=== PATIENT | male | born 1950 | race Asian ===

== ENCOUNTER 2020-02-15 02:46 | Inpatient (IN) | payer OTHER, MEDICAID ==
[~2020-02-15] VITALS: Ht 167.6 cm; Wt 136.1 kg
[2020-02-15 02:55] VITALS: BP 90/51
--- NOTE | 2020-02-15 03:32 | NUR ---
69 Y/O MALE BIB [facility] WITH STOMACH PAIN S/P LAST EVENINGS DINNER. 10/10 ABDOMINAL PAIN. PT STATES HE ONLY ATE SOUP FOR DINNER. C/O NAUSEA, VOMITING X 30 MIN AGO, ABDOMEN TTP. DENIES DIARRHEA, SOB, COUGH. R/R EQUAL, AND UNLABORED. VSS. SIDE RAIL X2, BED IN LOW POSITION WILL CONTINUE TO MONITOR. 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
--- NOTE | 2020-02-15 04:23 | NUR ---
PT , DOM, CONTACT INFO:
[2020-02-15] MEDS ORDERED: NACL 0.9% 1,000 ML IV ONE (05:30)
--- NOTE | 2020-02-15 05:52 | NUR ---
PT APPEARS TO BE SLEEPING. R/R EQUAL, AND UNLABORED. VSS SIDE RAIL X2, BED IN LOW POSITION. WILL CONTINUE TO MONITOR
[2020-02-15 06:04] LABS: BASOPHILS # (AUTO) 0.1 K/uL (0.00-0.22); BASOPHILS % (AUTO) 1.9 % (0.0-2.0); EOSINOPHILS % (AUTO) 0.4 % (0.0-4.0); HEMATOCRIT 40.1 % (36-52); HEMOGLOBIN 12.9 g/dL (12.0-18.0); LYMPHOCYTES # (AUTO) 0.4 K/uL (2.0-11.5); LYMPHOCYTES % (AUTO) 7.6 % (20.5-51.1); MEAN CORPUSCULAR HEMOGLOBIN 32 pg (27-31); MEAN CORPUSCULAR HGB CONC 32 g/dL (33-37); MEAN CORPUSCULAR VOLUME 100.2 fL (80-94); MONOCYTES # (AUTO) 0.4 K/uL (0.8-1.0); MONOCYTES % (AUTO) 8.7 % (1.7-9.3); NEUTROPHILS # (AUTO) 3.9 K/uL (1.8-7.7); NEUTROPHILS % (AUTO) 81.4 % (42.2-75.2); PLATELET COUNT (AUTO) 160 K/uL (140-450); RED CELL DISTRIBUTION WIDTH 17.1 % (11.6-13.7); WHITE BLOOD COUNT (AUTO) 4.8 K/uL (4.8-10.8)
[2020-02-15 06:17] LABS: ALBUMIN 3.4 g/dL (3.4-5.0); ANION GAP 17.8 (8-16); CARBON DIOXIDE 23.9 mmol/L (21-32); CREATININE 3.3 mg/dL (0.6-1.3); POTASSIUM 4.7 mmol/L (3.5-5.1); TOTAL BILIRUBIN 1.1 mg/dL (0.0-1.0)
[2020-02-15] MEDS ORDERED: ZOLPIDEM 5 MG TAB PO PRN (07:10)
[2020-02-15] MEDS ORDERED: ACETAMINOPHEN 325 MG TAB PO PRN (07:10)
[2020-02-15] MEDS ORDERED: ONDANSETRON 4 MG/2 ML VIAL IM/IVP PRN (07:10)
[2020-02-15] MEDS ORDERED: LORazepam 2 MG/ML VIAL IM/IVP PRN (07:10)
[2020-02-15] MEDS ORDERED: DOCUSATE SODIUM 100 MG GELCAP PO PRN (07:10)
[2020-02-15] MEDS ORDERED: MORPHINE SULFATE 2 MG/ML SYR IVP PRN (07:10)
--- NOTE | 2020-02-15 08:31 | NUR ---
c/o epigastric region pain with nausea x yesterday---denies fever or dysuria will request for pain med
--- NOTE | 2020-02-15 08:47 | NUR ---
encouraged to provide urine sample ; urinal provided
--- NOTE | 2020-02-15 10:38 | NUR ---
daughter (Cherie) [phone] cell please update
[2020-02-15 10:51] LABS: PROTHROMBIN TIME 9.9 secs (10.8-13.4)
[2020-02-15 10:55] LABS: FREE T4 (FREE THYROXINE) 0.96 ng/dL (0.76-1.46); MAGNESIUM 1.9 mg/dL (1.8-2.4); PHOSPHORUS 4.1 mg/dL (2.5-4.9); THYROID STIMULATING HORMONE 1.57 uIU/mL (0.34-3.74)
[2020-02-15 11:30] LABS: APPEARANCE,URINE HAZY (CLEAR); BILIRUBIN,URINE NEGATIVE (NEGATIVE); BLOOD, URINE 1+ (NEGATIVE); COLOR,URINE DARK YELLOW (YELLOW); LEUKOCYTE ESTERASE ,URINE NEGATIVE (NEGATIVE); NITRITE, URINE NEGATIVE (NEGATIVE); UGLUCOSE 3+ (NEGATIVE)
[2020-02-15] MEDS: NACL 0.9% 1,000 ML IV SCH ×2 (11:39→18:19)
[2020-02-15 11:41] LABS: BARBITURATE, URINE NEGATIVE ng/ml (NEG <=200); BENZODIAZEPINE, URINE NEGATIVE ng/mL (NEG <=200); CANNABINOID, URINE NEGATIVE ng/mL (NEG <=50); COCAINE, URINE NEGATIVE ng/mL (NEG <=300); OPIATE, URINE NEGATIVE ng/mL (NEG <=2000); PHENCYCLIDINE SCREEN,URINE NEGATIVE ng/mL (NEG <=25)
--- NOTE | 2020-02-15 11:41 | NUR ---
pt is unable to tell me what meds hisw on---nohelia will bring in list
[2020-02-15] MEDS ORDERED: DEXTROSE 50% 50 ML SYR IVP PRN (11:50)
[2020-02-15 11:58] LABS: RBC,URINE 0-5 /HPF (0-5)
[2020-02-15] MEDS: metroNIDAZOLE 500 MG/NS PREMIX 100 ML IV SCH ×2 (12:44→22:01)
[2020-02-15] MEDS ORDERED: BUPR-160 PO (12:57)
[2020-02-15] MEDS ORDERED: CILO100T PO (12:57)
[2020-02-15] MEDS ORDERED: LOSA50TA66 PO (12:57)
[2020-02-15] MEDS ORDERED: LENA5CAP PO (12:57)
[2020-02-15] MEDS ORDERED: CHOL500014 PO (12:57)
[2020-02-15] MEDS ORDERED: ROSU10TA1 PO (12:57)
[2020-02-15] MEDS ORDERED: HUM SUBQ (12:57)
[2020-02-15] MEDS ORDERED: FAMO-90 PO (12:57)
[2020-02-15] MEDS ORDERED: ASPI-1822 PO (12:57)
[2020-02-15] MEDS ORDERED: ALLO100T21 PO (12:57)
[2020-02-15] MEDS ORDERED: INSU100S22 SUBQ (12:57)
[2020-02-15] MEDS ORDERED: PRAZ1CAP5 PO (12:57)
--- NOTE | 2020-02-15 15:31 | NUR ---
as per pharmacy request--pt's family will bring in pt's chemo medication to take as directed--- no repeat episode of emesis---pt states pt is okay right now---aware is NPO
--- NOTE | 2020-02-15 16:18 | NUR ---
helped pt change wet diaper---changed all linen and gown--pt thankful c/o epigastric pain , 12/11 denies n/v continues to wait for available room for inpatient admission
[2020-02-15] MEDS ORDERED: DOCUSATE SODIUM 100 MG GELCAP PO ONE (16:23)
[2020-02-15] MEDS ORDERED: HYDROcodone/APAP 5/325 MG 1 TAB TAB ONE (16:23)
[2020-02-15] MEDS: HYDROcodone/APAP 5/325 MG 1 TAB TAB PO PRN ×2 (16:28→22:45)
--- NOTE | 2020-02-15 16:29 | NUR ---
medicated as written for pain control---will continue to observe for pain control
[2020-02-15] MEDS: BLOOD GLUCOSE MONITORING 1 DEV DEV FS SCH ×2 (16:30→21:00)
--- NOTE | 2020-02-15 17:45 | NUR ---
PATIENT ADMITTED TO TELE FLOOR FROM ED VIA GURNEY. STANDARD PRECAUTION OBSERVED. PATIENT AWAKE AND ALERT ORIENTED X4. RESP EVEN AND UNLABORED ON ROOM AIR. PATIENT STATED TOLERABLE PAIN TO ABDOMEN. ABDOMEN NOTED TO BE ROUND AND LARGE, DISTENDED, FIRM TO TOUCH. BOWEL SOUNDS HYPOACTIVE. PATIENT STATED LAST BOWEL MOVEMENT WAS 4 DAYS AGO. PATIENT DENIES OF ANY NAUSEA AND VOMITING AT THIS TIME. RIGHT AC 22 NOTED SL AND PATENT. LEFT SIDE WEAKNESS NOTED UPON INITIAL ASSESSMENT. SKIN IS INTACT. NPO FOR POSSIBLE SURGERY. MRSA SPECIMEN OBTAINED. PLAN OF CARE DISCUSSED WITH PATIENT. PATIENT VERBALIZED UNDERSTANDING. CALL LIGHT WITHIN REACH. WILL CONTINUE TO MONITOR.
--- NOTE | 2020-02-15 17:45 | NUR ---
Pt transferred to Tele via WHEELCHAIR ROOM 120-B REPORT GIVEN TO ALVARO MARCUM
--- NOTE | 2020-02-15 19:30 | NUR ---
PATIENT RESTING COMFORTABLY IN BED. ENDORSED TO NIGHT NURSE. PATIENT IN STABLE CONDITION.
[2020-02-15 20:00] VITALS: BP 109/57
--- NOTE | 2020-02-15 20:00 | NUR ---
RECEIVED REPORT FROM DAY RN FOR CONTINUITY OF CARE.RECEIVED PATIENT A/A/OX3, LAYING IN BED. DR OLIVERA CAME AND SEEN THE PT. NO C/O PAIN AT THIS TIME. NO S/SX OF DISTRESS NOTED. SHOWING SINUS RHYTHM ON ASSOCIATE AGENT INSURANCE SALES, HR-71. VSS, AFEBRILE, SATING 98% ON RA. ADMITTED PT FROM ER. ADMISSION HISTORY OBTAIN FROM THE CHART AND PT INPUT.FALL PRECAUTION IMPLEMENTED. INSTRUCTED TO CALL FOR ASSISTANCE AT ALL TIMES.CALL LIGHT WITHIN REACH. WILL CONTINUE POC AND MONITORING.
[2020-02-15] MEDS ORDERED: metroNIDAZOLE 500 MG/NS PREMIX 100 ML IV ONE (20:35)
[2020-02-15] MEDS ORDERED: ASPIRIN 81 MG TAB.CHEW PO SCH (21:00)
[2020-02-15] MEDS: INSULIN LANTUS 100 UNITS/ML 10 ML VIAL SUBQ SCH (21:00)
[2020-02-15] MEDS: PRAZOSIN 1 MG CAP PO SCH (21:00)
[2020-02-15] MEDS: allopurinoL 100 MG TAB PO SCH (22:00)
[2020-02-15] MEDS: FAMOTIDINE 20 MG TAB PO SCH (22:00)
[2020-02-15] MEDS: cilostazoL 100 MG TAB PO SCH (22:00)
--- NOTE | 2020-02-15 22:00 | NUR ---
ADMINISTERED ALL SCHEDULED MEDICATIONS. BLOOD SUGAR 189, GAVE SSI COVERAGE AND LANTUS ORDERED. SAFETY MEASURES IN PLACED.
[2020-02-15] MEDS: INSULIN LISPRO SLIDING SCALE 100 UNITS/ML VIAL SUBQ PRN (22:05)
[2020-02-16] VITALS: BP 117/62
--- NOTE | 2020-02-16 | NUR ---
VITAL SIGNS STABLE,AFEBRILE, SATING 100% ON RA. SR WITH BBB ON I O PSYCHOLOGIST, HR-81. SAFETY MEASURES IN PLACED.
[2020-02-16] MEDS: NACL 0.9% 1,000 ML IV SCH (00:58)
--- NOTE | 2020-02-16 02:15 | NUR ---
PT SLEEPING AT THIS TIME. VISIBLE CHEST RISE AND FALL NOTED.CALL LIGHT WITHIN REACH. WILL CONTINUE MONITORING.
[2020-02-16 04:00] VITALS: BP 116/65
--- NOTE | 2020-02-16 04:00 | NUR ---
PT AWAKE AND SITTING AT THE EDGE OF THE BED. VOMITED X1 ON THE FLOOR PER RECTANGULAR TANK COOPER MONICA. UNABLE TO SEE THE PT VOMITUS BECAUSE IT WAS CLEANED BY THE RECTANGULAR TANK COOPER. OTHERWISE VSS, AFEBRILE, SATING 100% ON RA. SR ON CHAIRMAN,HR-80. CALL LIGHT WITHIN REACH.
[2020-02-16] MEDS: metroNIDAZOLE 500 MG/NS PREMIX 100 ML IV SCH ×3 (04:59→20:49)
--- NOTE | 2020-02-16 05:15 | NUR ---
PT IV PUMP SHUT DOWN AND IT SAYING POWER IS NOT SUFFICIENT. PUMP WAS PLUG THE WHOLE TIME. TRIED TO PLUG IT TO ANOTHER OUTLET BUT STILL NOT WORKING. WENT TO LOOK FOR PUMP EVERYWHERE BUT NON AVAILABLE. I ASKED THE SURGICAL TECHNOLOGIST FAIRY WHERE TO GET EXTRA IV PUMP PER SURGICAL TECHNOLOGIST FAIRY IF THERE IS NOTHING ON THE FLOOR, SHE CAN'T PROVIDE ME A PUMP. TRIED TO FIND A DIAL A FLOW BUT NON AVAILABLE WELL.WILL TRY LOOKING FOR PUMP AGAIN.
[2020-02-16 06:26] LABS: HEMATOCRIT 41.4 % (36-52); HEMOGLOBIN 13.6 g/dL (12.0-18.0); MEAN CORPUSCULAR HEMOGLOBIN 33 pg (27-31); MEAN CORPUSCULAR HGB CONC 33 g/dL (33-37); MEAN CORPUSCULAR VOLUME 99.7 fL (80-94); PLATELET COUNT (AUTO) 184 K/uL (140-450); RED BLOOD CELL COUNT(AUTO) 4.15 MIL/uL (4.20-6.10); RED CELL DISTRIBUTION WIDTH 17.2 % (11.6-13.7); WHITE BLOOD COUNT (AUTO) 2.7 K/uL (4.8-10.8)
--- NOTE | 2020-02-16 06:30 | NUR ---
PT STABLE. NO ACUTE EVENTS THROUGHOUT THE NIGHT. NO S/SX OF DISTRESS NOTED. NO COMPLAIN AT THIS TIME. ALL NEEDS ATTENDED. CALL LIGHT WITHIN REACH. WILL ENDORSE THE PT TO THE ONCOMING RN FOR CONTINUITY OF CARE.
[2020-02-16 06:45] LABS: CARBON DIOXIDE 25.3 mmol/L (21-32); CREATININE 3.1 mg/dL (0.6-1.3); POTASSIUM 4.3 mmol/L (3.5-5.1)
[2020-02-16 06:52] LABS: MAGNESIUM 2.1 mg/dL (1.8-2.4)
--- NOTE | 2020-02-16 07:15 | NUR ---
REPORT GIVEN TO THE RECEIVING RN AND ENDORSED THAT THERE IS NO AVAILABLE IV PUMP AND IV ANTIBIOTIC FLAGYL NEEDED TO BE GIVEN.
[2020-02-16 08:00] VITALS: BP 101/50
[2020-02-16] MEDS: BLOOD GLUCOSE MONITORING 1 DEV DEV FS SCH ×4 (08:11→20:50)
[2020-02-16] MEDS: DEXT 5% /NACL 0.9% 1,000 ML IV SCH ×3 (08:57→23:24)
--- NOTE | 2020-02-16 08:57 | NUR ---
MEDICATIONS EXPLAINED AND GIVEN TO PATIENT, BLOOD PRESSURE MEDICATIONS WITHHELD PATIENT BLOOD PRESSURE IS 101/50. DR DIAZ AWARE OF BLOOD PRESSURE MEDICATION WITHHELD. NEW BAG OF D5 NS HUNG AT 150 ML/HR. ALL NEEDS MET, CALL LIGHT WITHIN REACH, WILL CONTINUE TO MONITOR.
[2020-02-16] MEDS: buPROPion 150 MG TABER PO SCH (08:58)
[2020-02-16] MEDS: FAMOTIDINE 20 MG TAB PO SCH ×2 (08:58→20:55)
[2020-02-16] MEDS: cilostazoL 100 MG TAB PO SCH ×2 (08:58→20:55)
[2020-02-16] MEDS: allopurinoL 100 MG TAB PO SCH ×2 (08:58→20:54)
[2020-02-16] MEDS ORDERED: LOSARTAN 50 MG TAB PO SCH (09:00)
[2020-02-16] MEDS: PRAZOSIN 1 MG CAP PO SCH ×2 (09:00→20:55)
[2020-02-16] MEDS ORDERED: LENALIDOMIDE PO SCH (09:00)
[2020-02-16] MEDS: INSULIN LISPRO SLIDING SCALE 100 UNITS/ML VIAL SUBQ PRN ×3 (09:02→21:01)
--- NOTE | 2020-02-16 10:00 | NUR ---
APRON MAN NOTE: Patient's Orientation Person Situation Place Time Information Provided By JOAQUIN TAO - CHILD Oil And Gas Exploration Technician, Realtionship and Phone Number JOAQUIN TAO DAUGHTER [phone] Healthcare Power of Rn Allergy No Does Patient Have a POLST Yes Identifying Problems No Social Work Triggers Is A Social Work Consult Needed No Mandate Report Filed No Explanation Of Identifying Problems PATIENT IS A 69-YEAR-OLD MALE ADMITTED FOR SMALL BOWEL OBSTRUCTION. PATIENT HAS PMHX OF ESRD NOT ON HD, DM, HTN, GOUT, MDD, CLAUDICATION, GERD, DLD, AND MULTIPLE MYELOMA. Admitted From Home Pre-Admission Level Of Functioning Status Independent With DME Prior Resources/Services Used In Last 12 Months No Prior Resources Used Prior DME Hospital Bed Walker Wheelchair Living Situation Apartment Lives W/Significant Other Patient Had Caregiver No Home Support No Caregiver Issues Financial Issues No Known Financial Issue Referral To The Financial Counselor Needed No Factors/Needs No D/C Needs Identified Pt/Rep Participated In Discharge Plan Yes Patient/Family Agress With Discharge Plan Yes Discharge Plan Comments TENTATIVE DISCHARGE PLAN IS FOR PATIENT TO RETURN HOME. DC Plan Status Initiated
[2020-02-16 10:39] LABS: LYMPHOCYTES % (MANUAL) 32 % (20-46)
[2020-02-16 10:40] LABS: BASOPHILS % (MANUAL) 0 % (0-2); EOSINOPHILS % (MANUAL) 1 % (0-4); MONOCYTES % (MANUAL) 10 % (5-12)
--- NOTE | 2020-02-16 10:47 | NUR ---
PATIENT HAS BEEN SCREENED AND CATEGORIZED MODERATE NUTRITION RISK. PATIENT WILL BE SEEN WITHIN 3-5 DAYS OF ADMISSION. 02/18/20 02/20/[address]
--- NOTE | 2020-02-16 10:50 | NUR ---
PATIENT TAKEN TO RADIOLOGY VIA WHEELCHAIR, TICKET TO RIDE / HANDOFF GIVEN. PATIENT IS OFF IVF PER SOILED LINEN DISTRIBUTOR REQUEST. CAR STEREO INSTALLER NOTIFIED
[2020-02-16 12:00] VITALS: BP 112/70
--- NOTE | 2020-02-16 12:08 | NUR ---
PATIENT RETURNED FROM RADIOLOGY , RECONNECTED TO IV FLUIDS NOW AT 125 ML/HR D5NS. DR. CHRISTIAN ASSESSED PATIENT, STATES THAT PATIENT MUST CONTINUE TO BE NPO. MADE AWARE REGARDING PATIENT CHEMOTHERAPY MEDICATION AND STATES HE WILL PUT IN ORDER FOR OKAY TO USE HOME MEDICATIONS. ALL NEEDS MET, CALL LIGHT WITHIN REACH, WILL CONTINUE TO MONITOR.
[2020-02-16] MEDS: AMPICILLIN/SULBACTAM 3 GM in NACL 0.9% 100 ML IV SCH ×2 (13:40→20:54)
--- NOTE | 2020-02-16 14:03 | NUR ---
Talked to cherie, regarding the cancer medication which is brought yesterday, per Cherie the mother gave it to the front lobby to give to miguel, spoke to jennifer pharmacist, will look for the medicine.
[2020-02-16] MEDS ORDERED: REVLIMID 5 MG PO SCH (15:08)
[2020-02-16 16:00] VITALS: BP 111/63
--- NOTE | 2020-02-16 16:04 | NUR ---
PATIENT HAD THIRD LOOSE BOWEL MOVEMENT, LOOSE, BROWN, CLEANED CHANGED AND REPOSITIONED. WILL NOTIFY .
--- NOTE | 2020-02-16 16:11 | NUR ---
PATIENT BLOOD GLUCOSE 142, NO INSULIN COVERAGE NEEDED AT THIS TIME.
--- NOTE | 2020-02-16 16:32 | NUR ---
DR CHRISTIAN AWARE OF PATIENT THIRD LARGE SOFT BOWEL MOVEMENT TODAY. STATES THAT THIS MEANS THAT THE PATIENT MAY NOT NEED SURGERY. GAVE NO NEW ORDERS AT THIS TIME, MD STATES LONG PATIENT IS STILL HAVING PAIN, PATIENT MUST BE KEPT NPO. WILL CONTINUE TO MONITOR.
[2020-02-16] MEDS: SIMVASTATIN 20 MG TAB PO SCH (17:30)
--- NOTE | 2020-02-16 19:04 | NUR ---
PATIENT CLEANED CHANGED AND REPOSITIONED, HAD ANOTHER LARGE SOFT WATERY BOWEL MOVEMENT, FOURTH ONE TODAY. WILL ENDORSE TO FOAM GUN OPERATOR NURSE TO CONTINUE MONITORING. ALL NEEDS MET, CALL LIGHT WITHIN REACH.
--- NOTE | 2020-02-16 19:30 | NUR ---
ENDORSED TO LOOM STOP CHECKER NURSE ABOUT PATIENT CONDITION AND PLAN OF CARE. MADE AWARE OF PATIENTS 4 BOWEL MOVEMENTS TODAY. PATIENT CURRENTLY STABILIZED IN NO S/S RESPIRATORY DISTRESS NO C/O OF PAIN AT THIS TIME. ALL NEEDS MET, CALL LIGHT WITHIN REACH.
--- NOTE | 2020-02-16 19:51 | NUR ---
RECEIVED REPORT EARLIER FROM DAY RN FOR CONTINUITY OF CARE. PT A/A/OX3. NO C/O PAIN AT THIS TIME. NO S/SX OF DISTRESS NOTED. SHOWING SINUS TACHYCARDIA ON HABILITATION WORKER, HR- 104. IVF INFUSING ORDERED. FALL PRECAUTION IMPLEMENTED. INSTRUCTED TO CALL FOR ASSISTANCE AT ALL TIMES.CALL LIGHT WITHIN REACH. WILL CONTINUE POC AND MONITORING.
[2020-02-16 20:00] VITALS: BP 114/73
[2020-02-16] MEDS: INSULIN LANTUS 100 UNITS/ML 10 ML VIAL SUBQ SCH (21:00)
--- NOTE | 2020-02-16 22:00 | NUR ---
ADMINISTERED ALL THE SCHEDULED MEDS EARLIER. BLOOD SUGAR WAS 162, GAVE 2UNITS HUMALOG PER SSI AND LANTUS 22UNITS ORDERED. WILL CONTINUE MONITORING AND POC.
[2020-02-17] VITALS: BP 112/52
--- NOTE | 2020-02-17 | NUR ---
PATIENT VSS, AFEBRILE, SATING 98% ON RA. SINUS RHYTHM ON CHIPPER OPERATOR, HR-97. CALL LIGHT WITHIN REACH.
--- NOTE | 2020-02-17 00:45 | NUR ---
PATIENT IV ON THE RT AC NOT PATENT. DC/D IV ON THE RT AC, CANNULA INTACT. NO BLEEDING OR HEMATOMA NOTED ON THE SITE. STARTED A NEW IV ON THE RT HAND GAUGE 22.
--- NOTE | 2020-02-17 02:33 | NUR ---
PATIENT SLEEPING AT THIS TIME. VISIBLE CHEST RISE AND FALL NOTED. NOT IN ANY DISTRESS. WILL CONTINUE POC.
[2020-02-17 04:00] VITALS: BP 101/62
--- NOTE | 2020-02-17 04:30 | NUR ---
PT ASLEEP AND NO COMPLAIN OF PAIN AT THIS TIME. VSS, AFEBRILE, SATING 100% ON RA. SR WITH ST DEPRESSION ON TELE MONITOR, HR-92. CALL LIGHT WITHIN REACH.
[2020-02-17] MEDS: metroNIDAZOLE 500 MG/NS PREMIX 100 ML IV SCH ×3 (05:08→20:11)
[2020-02-17] MEDS: AMPICILLIN/SULBACTAM 3 GM in NACL 0.9% 100 ML IV SCH ×3 (05:13→21:48)
[2020-02-17] MEDS: DEXT 5% /NACL 0.9% 1,000 ML IV SCH (05:53)
[2020-02-17] MEDS: INSULIN LISPRO SLIDING SCALE 100 UNITS/ML VIAL SUBQ PRN ×4 (06:26→20:07)
[2020-02-17] MEDS: BLOOD GLUCOSE MONITORING 1 DEV DEV FS SCH ×4 (06:27→20:06)
--- NOTE | 2020-02-17 07:30 | NUR ---
RECEIVED BEDSIDE REPORT FROM PERCHER NURSE FOR CONTINUITY OF CARE. PATIENT IS ASLEEP AND IN BED. NO C/O PAIN AT THIS TIME. NO S/SX OF DISTRESS NOTED. RESPIRATIONS EVEN AND UNLABORED, ON ROOM AIR WITH SAO2 AT 94%. IVF INFUSING ON RIGHT HAND 22G ORDERED. FALL PRECAUTION IMPLEMENTED. INSTRUCTED TO CALL FOR ASSISTANCE AT ALL TIMES.CALL LIGHT WITHIN REACH. POC DISCUSSED. WILL CONTINUE TO MONITOR.
[2020-02-17 07:50] LABS: PHOSPHORUS 2.9 mg/dL (2.5-4.9)
[2020-02-17 08:00] VITALS: BP 114/49
[2020-02-17 08:00] LABS: BASOPHILS % (AUTO) 0.7 % (0.0-2.0); EOSINOPHILS % (AUTO) 1.1 % (0.0-4.0); HEMATOCRIT 36.5 % (36-52); HEMOGLOBIN 11.8 g/dL (12.0-18.0); LYMPHOCYTES # (AUTO) 0.6 K/uL (2.0-11.5); LYMPHOCYTES % (AUTO) 19.4 % (20.5-51.1); MEAN CORPUSCULAR HEMOGLOBIN 33 pg (27-31); MEAN CORPUSCULAR HGB CONC 32 g/dL (33-37); MEAN CORPUSCULAR VOLUME 100.6 fL (80-94); MONOCYTES # (AUTO) 0.4 K/uL (0.8-1.0); MONOCYTES % (AUTO) 15.6 % (1.7-9.3); NEUTROPHILS # (AUTO) 1.8 K/uL (1.8-7.7); NEUTROPHILS % (AUTO) 63.2 % (42.2-75.2); PLATELET COUNT (AUTO) 162 K/uL (140-450); RED BLOOD CELL COUNT(AUTO) 3.63 MIL/uL (4.20-6.10); RED CELL DISTRIBUTION WIDTH 16.6 % (11.6-13.7); WHITE BLOOD COUNT (AUTO) 2.8 K/uL (4.8-10.8)
[2020-02-17 08:08] LABS: ANION GAP 18.9 (8-16); CARBON DIOXIDE 20.4 mmol/L (21-32); CREATININE 3.3 mg/dL (0.6-1.3); POTASSIUM 4.3 mmol/L (3.5-5.1)
[2020-02-17] MEDS: allopurinoL 100 MG TAB PO SCH ×2 (09:11→20:13)
[2020-02-17] MEDS: cilostazoL 100 MG TAB PO SCH ×2 (09:12→20:14)
[2020-02-17] MEDS: FAMOTIDINE 20 MG TAB PO SCH ×2 (09:12→20:13)
[2020-02-17] MEDS: buPROPion 150 MG TABER PO SCH (09:12)
[2020-02-17] MEDS: PRAZOSIN 1 MG CAP PO SCH ×2 (09:13→20:42)
--- NOTE | 2020-02-17 09:13 | NUR ---
MORNING MEDICATIONS GIVEN. NO SIGNS OF DISTRESS NOTED. V/S TAKEN AND IS WNL. WILL CONTINUE TO MONITOR.
[2020-02-17] MEDS: REVLIMID 5 MG PO SCH (09:14)
--- NOTE | 2020-02-17 11:00 | NUR ---
DR. OLIVERA BY THE BEDSIDE, REVIEWED KUB RESULT AND PROCEEDED DIET CHANGE TO CLEAR LIQUIDS. WILL FOLLOW THROUGH. WILL CONTINUE TO MONITOR.
[2020-02-17] MEDS: DEXT 5% / NACL 0.45% 1,000 ML IV SCH ×2 (11:20→19:20)
--- NOTE | 2020-02-17 11:21 | NUR ---
NOTIFIED DR. OLIVERA REGARDING KUB RESULT AND HE ORDERED CLEAR LIQUID DIET.
[2020-02-17 12:00] VITALS: BP 92/54
--- NOTE | 2020-02-17 12:30 | NUR ---
2 UNITS OF INSULIN GIVEN FOR BLOOD GLUCOSE OF 190. NO SIGNS OF DISTRESS NOTED. WILL CONTINUE TO MONITOR.
--- NOTE | 2020-02-17 13:45 | NUR ---
DISCHARGE PLANNING: THIS IS A 69 Y/O MALE PATIENT FROM HOME, WHO CAME IN DUE TO ABDOMINAL PAIN. PAST MEDICAL HISTORY INCLUDE ESRD NOT ON HD, DM, HTN, GOUT, GERD, MULTIPLE MYELOMA. INITIAL DIAGNOSIS OF POSSIBLE SMALL BOWEL OBSTRUCTION. CURRENT LABS INCLUDE WB C2.8, H/H 11.8/36.5, NA/K 144/4.3, BUN/CREA 47/3.3. URINE CS AND MRSA NARES PENDING. BLOOD CS SHOWED NO GROWTH AFTER [address] ON ADMISSION SHOWED PARTIAL SMALL BOWEL OBSTRUCTION, RIGHT LATERAL POSTERIOR ABDOMINAL WALL HERNIA CONTAINING PROXIMAL ASCENDING COLON. KUB SHOWED NO EVIDENCE OF COMPLETE SMALL BOWEL OBSTRUCTION, THE SMALL BOWEL LOOPS REMAIN DILATED AND THIS MAY REPRESENT PARALYTIC ILEUS VS PARTIAL OBSTRUCTION. SURGERY CONSULTED AND SEEN - PREFER NON OPERATIVE MANAGEMENT DUE TO MULTIPLE MEDICAL ISSUES AND MORBID OBESITY, PREFER TO ADDRESS RIGHT LATERAL POSTERIOR HERNIA ELECTIVE OUTPATIENT. DC PLAN BACK TO HOME ONCE STABLE.
--- NOTE | 2020-02-17 14:28 | NUR ---
AFTERNOON MEDICATIONS GIVEN. NO SIGNS OF DISTRESS NOTED. WILL CONTINUE TO MONITOR.
[2020-02-17 16:00] VITALS: BP 124/68
[2020-02-17] MEDS: SIMVASTATIN 20 MG TAB PO SCH (16:35)
--- NOTE | 2020-02-17 16:42 | NUR ---
2 UNITS OF INSULIN GIVEN FOR BLOOD GLUCOSE OF 199. NO SIGNS OF DISTRESS NOTED. WILL CONTINUE TO MONITOR.
--- NOTE | 2020-02-17 19:20 | NUR ---
ENDORSED TO ADVANCED MANAGER NURSE FOR CONTINUITY OF CARE.
--- NOTE | 2020-02-17 19:25 | NUR ---
RECEIVED BEDSIDE ENDORSEMENT FROM TRIXIE CAMEJO. PATIENT IS LYING IN BED. AOX4. NO SOB. RESPIRATION EVEN AND UNLABORED. DENIES PAIN. RH 22 GAUGE INFUSING D5 1/2 NS AT 125CC/HR. TOLERATED WELL. ASSESSMENT DONE. FALL RISK PROTOCOL IN PLACE. PLAN OF CARE WAS DISCUSSED. CALL LIGHT WITHIN REACH. WILL CONTINUE TO MONITOR.
[2020-02-17] MEDS: INSULIN LANTUS 100 UNITS/ML 10 ML VIAL SUBQ SCH (20:09)
--- NOTE | 2020-02-17 20:30 | NUR ---
DUE MEDS GIVEN ORDERED. TOLERATED WELL. MED EDUCATION PROVIDED.
--- NOTE | 2020-02-17 22:30 | NUR ---
PATIENT WENT TO USE THE RESTROOM.
--- NOTE | 2020-02-17 22:45 | NUR ---
PATIENT WENT TO USE THE RESTROOM AND HAD A LOOSE BM.
[2020-02-18] VITALS: BP 103/52
[2020-02-18] MEDS: DEXT 5% / NACL 0.45% 1,000 ML IV SCH ×2 (03:37→11:20)
[2020-02-18] MEDS: metroNIDAZOLE 500 MG/NS PREMIX 100 ML IV SCH (05:53)
[2020-02-18] MEDS: BLOOD GLUCOSE MONITORING 1 DEV DEV FS SCH ×2 (05:59→12:20)
--- NOTE | 2020-02-18 07:00 | NUR ---
RECEIVED REPORT FROM DESK OFFICER REGARDING PATIENT CONDITION AND PLAN OF CARE. PATIENT CURRENTLY ASLEEP, IN NO S/S RESPIRATORY DISTRESS, NO APPEARANCE OF PAIN AT THIS TIME. PT IVF D5 1/2NS RUNNING AT 125 ML/HR, CURRENTLY ON ROOM AIR. ALL NEEDS MET, CALL LIGHT WITHIN REACH.
--- NOTE | 2020-02-18 07:25 | NUR ---
PATIENT IS IN STABLE CONDITION. ENDORSED TO AM SHIFT RN TO GIVE THE UNASYN IV DUE TO THE FLAGYL IV IS STILL INFUSING, AND ENDORSED FOR CONTINUITY OF CARE.
[2020-02-18 08:00] VITALS: BP 110/51
[2020-02-18] MEDS: AMPICILLIN/SULBACTAM 3 GM in NACL 0.9% 100 ML IV SCH (08:16)
--- NOTE | 2020-02-18 08:16 | NUR ---
PATIENT'S UNASYN GIVEN , PER TOUR ESCORT NURSE, FLAGYL WAS STILL HUNG THUS UNABLE TO BE GIVEN DURING THEIR SHIFT. ALL NEEDS MET, CALL LIGHT WITHIN REACH, WILL CONTINUE TO MONITOR.
[2020-02-18] MEDS: FAMOTIDINE 20 MG TAB PO SCH (09:53)
[2020-02-18] MEDS: allopurinoL 100 MG TAB PO SCH (09:53)
[2020-02-18] MEDS: buPROPion 150 MG TABER PO SCH (09:53)
[2020-02-18] MEDS: cilostazoL 100 MG TAB PO SCH (09:54)
--- NOTE | 2020-02-18 09:54 | NUR ---
RECEIVED PATIENT SITTING IN BED, ALERT ORIENTED X 4 , AMBULATED TO RESTROOM USING CANE AND NURSE STANDBY ASSIST. PATIENT BLOOD PRESSURE RETAKEN MANUALLY AND FOUND TO BE 126/58, MEDICATIONS EXPLAINED AND GIVEN. EXPLAINED TO PATIENT PLAN OF CARE. PATIENT CURRENTLY 97% ON ROOM AIR, IN NO S/S RESPIRATORY DISTRESS, COMPLAINS OF NO ABDOMINAL PAIN. ALL NEEDS MET, CALL LIGHT WITHIN REACH, WILL CONTINUE TO MONITOR.
[2020-02-18] MEDS: PRAZOSIN 1 MG CAP PO SCH (09:55)
[2020-02-18] MEDS: REVLIMID 5 MG PO SCH (09:56)
[2020-02-18 11:01] VITALS: BP 117/62
--- NOTE | 2020-02-18 11:42 | NUR ---
PT ALERT, AWAKE, ORIENTED, DRESSED UP FOR DISCHARGE, PATIENT CLAIMED, I WILL EAT FIRST, SKIN WARM TO TOUCH RESP. EVEN AND UNLABORED, VITAL SIGN STABLE, AWARE NEED TO FOLLOW UP WITH PRIMARY MD, JOAQUIN DAUGHTER TALKED TO DR BERRY, HOME MEDS GIVEN TO PATIENT.
[2020-02-18] MEDS: INSULIN LISPRO SLIDING SCALE 100 UNITS/ML VIAL SUBQ PRN (12:33)
--- NOTE | 2020-02-18 12:33 | NUR ---
PATIENT DISCHARGED WITH ALL PERSONAL BELONGINGS AND COPY OF DISCLOSURE OF HEALTH INFORMATION SHEET. PATIENT IV AND ID BANDS REMOVED. LEFT FACILITY IN NO S/S RESPIRATORY DISTRESS, NO C/O OF PAIN. DISCHARGE PACKET GIVEN TO BY MONCHO MARCUM. SPOKE WITH JOAQUIN DAUGHTER ABOUT PATIENT DISCHARGE.
== END 2020-02-18 12:35 | disposition home or self-care (01) | DRG 393 ==
LOC: MED 02:46 → MTU 07:19
PROVIDERS: ADMIT Family Medicine; ATTEND Family Medicine
DX: K43.6 Other and unspecified ventral hernia with obstruction, without gangrene (principal); N17.0 Acute kidney failure with tubular necrosis; N18.6 End stage renal disease; I12.0 Hypertensive chronic kidney disease with stage 5 chronic kidney disease or end stage renal disease; C90.00 Multiple myeloma not having achieved remission; K56.0 Paralytic ileus; Z68.42 Body mass index [BMI] 45.0-49.9, adult; E11.22 Type 2 diabetes mellitus with diabetic chronic kidney disease; F32.9 Major depressive disorder, single episode, unspecified; K21.9 Gastro-esophageal reflux disease without esophagitis; Z66 Do not resuscitate; M10.9 Gout, unspecified; E78.5 Hyperlipidemia, unspecified; E66.01 Morbid (severe) obesity due to excess calories; E11.51 Type 2 diabetes mellitus with diabetic peripheral angiopathy without gangrene
CPT/HCPCS: 36415; 71045; 74018; 74250; 80048; 80053; 80305; 81001; 82150; 82948; 83036; 83605; 83690; 83735; 83880; 84100; 84439; 84443; 84484; 85025; 85610; 85730; 87040; 87081; 87086; 87804; 96361; 96365; 96375; 99285; J0295; J1815; J2270; J2405; J3490; J7030; J7042; Q0092